=== PATIENT | male | born 1975 | race Caucasian/White ===

== ENCOUNTER 2018-08-08 22:19 | Observation (INO) | payer MEDICARE, OTHER ==
[2018-08-08 22:40] LABS: ADD MAN DIFF? NO
[2018-08-08 22:41] LABS: WHITE BLOOD COUNT 6.1 10^3/ul (4.8-10.8)
[2018-08-08 22:41] LABS: BASOPHILS % 0.3 % (0.0-2.0); EOSINOPHILS # 0.1 10^3/ul (0.0-0.5); EOSINOPHILS % 1.1 % (0.0-7.0); HEMATOCRIT 29.8 % (42.0-52.0); LYMPHOCYTES # 1.5 10^3/ul (0.8-2.9); MEAN CORPUSCULAR HEMOGLOBIN 33.1 pg (29.0-33.0); MEAN CORPUSCULAR HGB CONC 33.6 g/dl (32.0-37.0); MEAN CORPUSCULAR VOLUME 98.7 fl (82.0-101.0); MEAN PLATELET VOLUME 9.1 fl (7.4-10.4); MONOCYTE # 0.6 10^3/ul (0.3-0.9); MONOCYTES % 9.1 % (0.0-11.0); NEUTROPHIL # 3.9 10^3/ul (1.6-7.5); NEUTROPHILS % 64.3 % (39.0-77.0); PLATELET COUNT 212 10^3/UL (140-415); RED BLOOD COUNT 3.02 10^6/ul (4.70-6.10); RED CELL DISTRIBUTION WIDTH 12.5 % (11.5-14.5)
[2018-08-08] MEDS: LEVETIRACETAM 1000 MG (PMX) 100 ML IVPB (22:52)
[2018-08-08 22:59] LABS: ALANINE AMINOTRANSFERASE 30 IU/L (13-69); ALBUMIN 3.6 g/dl (3.3-4.9); ALBUMIN/GLOBULIN RATIO 1.28; ALKALINE PHOSPHATASE 60 IU/L (42-121); ANION GAP 16 (8-16); ASPARTATE AMINO TRANSFERASE 21 IU/L (15-46); BILIRUBIN,INDIRECT 0.1 mg/dl (0-1.1); BILIRUBIN,TOTAL 0.1 mg/dl (0.2-1.3); BLOOD UREA NITROGEN 11 mg/dl (7-20); CALCIUM 8.3 mg/dl (8.4-10.2); CARBON DIOXIDE 27 mmol/L (21-31); CHLORIDE 101 mmol/L (97-110); CREATININE 3.23 mg/dl (0.61-1.24); GLUCOSE 119 mg/dl (70-220); MAGNESIUM 1.9 mg/dl (1.7-2.5); PHOSPHORUS 2.2 mg/dl (2.5-4.9); POTASSIUM 3.1 mmol/L (3.5-5.1); SODIUM 141 mmol/L (135-144); TOTAL PROTEIN 6.4 g/dl (6.1-8.1)
[2018-08-08] MEDS: HYDROCORTISONE 100 MG INJ IV (23:36)
[2018-08-08] MEDS: HYDROCORTISONE 5 MG TAB PO (23:36)
[2018-08-09] MEDS: SOD CHLORIDE 0.9% 500 ML IV (00:30)
[2018-08-09] MEDS ORDERED: LORAZEPAM 2 MG INJ IV ×2 (00:30→08:00)
[2018-08-09] MEDS ORDERED: ONDANSETRON 4 MG INJ IV (00:30)
[2018-08-09] MEDS ORDERED: NACL 0.9% 3 ML SYG IV (00:30)
[2018-08-09] MEDS ORDERED: ACETAMINOPHEN 325 MG TAB PO (00:30)
[2018-08-09] MEDS: ACETAMINOPHEN 500 MG TAB PO (00:47)
[2018-08-09] MEDS: POTASSIUM CHLORIDE (SR) 20 MEQ TAB PO (02:31)
[2018-08-09] MEDS ORDERED: morphine 2 MG INJ IV (03:15)
[2018-08-09] MEDS: MAGNESIUM SULFATE 1 GM/D5W 100 ML IVPB (03:42)
[2018-08-09] MEDS: ACETAMINOPHEN 325 MG TAB PO (03:53)
[2018-08-09] MEDS ORDERED: ONDANSETRON 4 MG TAB PO (05:30)
[2018-08-09] MEDS ORDERED: NON-FORMULARY/PATIENT OWN MED (Temazepam* 30 MG) PO (05:30)
[2018-08-09] MEDS ORDERED: TEMAZEPAM 15 MG CAP PO (06:00)
[2018-08-09 06:10] LABS: ADD MAN DIFF? NO
[2018-08-09 06:16] LABS: ABNORMAL IP MESSAGE 1; BASOPHILS % 0.2 % (0.0-2.0); HEMATOCRIT 29.3 % (42.0-52.0); HEMOGLOBIN 9.6 g/dl (14.0-18.0); LYMPHOCYTES # 0.6 10^3/ul (0.8-2.9); LYMPHOCYTES % 14.2 % (15.0-51.0); MEAN CORPUSCULAR HEMOGLOBIN 32.8 pg (29.0-33.0); MEAN CORPUSCULAR HGB CONC 32.8 g/dl (32.0-37.0); MEAN PLATELET VOLUME 9.7 fl (7.4-10.4); MONOCYTE # 0.2 10^3/ul (0.3-0.9); NEUTROPHIL # 3.3 10^3/ul (1.6-7.5); NEUTROPHILS % 81.1 % (39.0-77.0); PLATELET COUNT 207 10^3/UL (140-415); POSITIVE DIFF @See below; RED BLOOD COUNT 2.93 10^6/ul (4.70-6.10); RED CELL DISTRIBUTION WIDTH 12.7 % (11.5-14.5)
[2018-08-09 06:47] LABS: ALBUMIN 3.8 g/dl (3.3-4.9); ALBUMIN/GLOBULIN RATIO 1.46; ALKALINE PHOSPHATASE 56 IU/L (42-121); ASPARTATE AMINO TRANSFERASE 20 IU/L (15-46); BLOOD UREA NITROGEN 14 mg/dl (7-20); CALCIUM 8.8 mg/dl (8.4-10.2); CARBON DIOXIDE 27 mmol/L (21-31); CHLORIDE 107 mmol/L (97-110); CHOLESTEROL 138 mg/dl (100-200); CREATININE 3.66 mg/dl (0.61-1.24); GLUCOSE 105 mg/dl (70-220); HDL CHOLESTEROL 66 mg/dl (27-67); LDL CHOLESTEROL,CALCULATED 42 mg/dl; MAGNESIUM 2.6 mg/dl (1.7-2.5); SODIUM 143 mmol/L (135-144); TOTAL PROTEIN 6.4 g/dl (6.1-8.1); TRIGLYCERIDES 151 mg/dl (0-149)
[2018-08-09 07:01] LABS: AMPHETAMINE/METHAMPHETAMINE Negative (NEGATIVE); BARBITURATES Negative (NEGATIVE); BENZODIAZEPINES Negative (NEGATIVE); CANNABINOIDS Positive (NEGATIVE); COCAINE Negative (NEGATIVE); OPIATES Negative (NEGATIVE)
[2018-08-09 07:04] LABS: HEMOGLOBIN A1C 4.8 % (0-5.9)
[2018-08-09 07:31] LABS: ANION GAP 13 (8-16); POTASSIUM 3.8 mmol/L (3.5-5.1)
[2018-08-09] MEDS ORDERED: SEVELAMER CARBONATE 800 MG TABLET PO (07:55)
[2018-08-09 07:58] LABS: ALANINE AMINOTRANSFERASE 28 IU/L (13-69)
[2018-08-09 08:28] LABS: HIV 1&2 ANTIBODY REACTIVE (NEGATIVE)
[2018-08-09 08:30] LABS: THYROID STIMULATING HORMONE 0.161 MIU/L (0.465-4.680)
[2018-08-09] MEDS ORDERED: HYDROCORTISONE 20 MG TAB PO (09:00)
[2018-08-09] MEDS ORDERED: FLUDROCORTISONE 0.1 MG TAB PO (09:00)
[2018-08-09] MEDS ORDERED: EMTRICITABINE 200 MG CAP PO (09:00)
[2018-08-09] MEDS ORDERED: ABACAVIR 300 MG TAB PO (09:00)
[2018-08-09] MEDS ORDERED: HYDROCORTISONE 20 MG PO (09:00)
[2018-08-09] MEDS ORDERED: FOLIC ACID 1 MG TAB PO (09:00)
[2018-08-09] MEDS ORDERED: NON-FORMULARY/PATIENT OWN MED (Simvastatin 20 MG) PO (09:00)
[2018-08-09] MEDS ORDERED: DOLUTEGRAVIR SODIUM 50 MG TABLET PO (09:00)
[2018-08-09] MEDS ORDERED: LISINOPRIL 10 MG TAB PO (09:00)
[2018-08-09] MEDS ORDERED: LEVETIRACETAM 1000 MG (PMX) 100 ML IVPB (10:00)
[2018-08-09] MEDS ORDERED: HYDROCORTISONE 10 MG PO (17:55)
[2018-08-09] MEDS ORDERED: HYDROCORTISONE 5 MG TAB PO (17:55)
[2018-08-09] MEDS ORDERED: ATORVASTATIN 10 MG TAB PO (21:00)
[2018-08-11 13:31] LABS: LYMPHOCYTE - % CD4 (HELPER) 29 % (30-61); LYMPHOCYTE - %CD8 (SUPPRESSOR) 42 % (12-42); LYMPHOCYTE - ABSOLUTE 589 cells/uL (850-3900); LYMPHOCYTE - ABSOLUTE CD4 172 cells/uL (490-1740); LYMPHOCYTE - ABSOLUTE CD8 249 cells/uL (180-1170); LYMPHOCYTE - CD4/CD8 RATIO 0.69 (0.86-5.00)
== END 2018-08-09 09:01 | disposition left against medical advice (07) ==
LOC: E/R 22:19 → TEL 08-09 00:07
DX: G40.909 Epilepsy, unspecified, not intractable, without status epilepticus (principal); I12.0 Hypertensive chronic kidney disease with stage 5 chronic kidney disease or end stage renal disease; N18.6 End stage renal disease; Z99.2 Dependence on renal dialysis; E27.1 Primary adrenocortical insufficiency; R51 Headache; D64.9 Anemia, unspecified; F41.9 Anxiety disorder, unspecified
CPT/HCPCS: 36415; 70450; 71045; 76775; 80053; 80061; 80307; 83036; 83735; 84100; 84443; 85025; 86360; 86701; 86703; 87040; 87536; 96374; 96375; 99285-25; G0378